=== PATIENT | female | born 1975 | race Caucasian/White ===

== ENCOUNTER 2023-02-14 08:34 | Outpatient (AMB) | payer OTHER, SELFPAY ==
--- NOTE | 2023-02-14 09:19 | AM.OFFWIN_ITS ---
Intake Vital Signs 02/14/23 09:20 Height 5 ft 3 in Weight 130 lb BMI 23.0 BP 126/74 Blood Pressure Location Rt brachial Position Sitting Pulse 72 Pulse Source Pulse Oximeter Temp 97.8 F Temp Source Oral Pulse Oximetry (%) 100 Oxygen Delivery Method Room Air Intake Visit Reasons: EP, sore throat, congestion ([phone]) Intake Note: pt is here for c.o sore throat, congestion, possible sinus infection 2x weeks Patient Tobacco Use Status: Never used Tobacco Allergies azithromycin Adverse Reaction (Mild, Verified 02/14/23 09:20) swelling eyes. Do you need a note to return to daycare/school/sports/work: Yes HPI EP, sore throat, congestion ([phone]) HPI Details This is a 47-year-old female patient who presents today for a sick visit. She reports a 2 week history of congestion, sore throat, and sinus pressure. 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 She denies any fever or chills. Denies any shortness of breath. Denies any GI symptoms. Has been taking [id number] Sudafed with some mild relief. [facility] Social History Patient Tobacco Use Status: Never used Tobacco Review of Systems Const All systems reviewed & are unremarkable except as noted in HPI and below Physical Exam Vital Signs: Last Vital Signs Temp 97.8 F 02/14/23 09:20 Pulse 72 02/14/23 09:20 BP 126/74 02/14/23 09:20 Pulse Ox 100 02/14/23 09:20 Oxygen Delivery Method Room Air 02/14/23 09:20 BMI result Body Mass Index 23.0 Const General: cooperative and no acute distress HEENT Head: Yes normal to inspection and Yes normocephalic Ears: hearing grossly normal bilaterally, external ears normal, TM normal on the right and TM abnormal (left TM ) wth effusion purulent and erythematous General nose exam: Normal external nose present and Normal nares present Face and sinus: Yes normal facial exam Mouth: Normal oral and palatal mucosa present and oropharynx normal Throat: Yes posterior oropharynx normal (mild erythema) Neck Neck: Yes no lymphadenopathy Resp Effort & Inspection: normal respiratory effort and able to speak in complete sentences Auscultation: clear to auscultation bilaterally Cardio Jugular venous distension: no JVD Palpation: normal PMI Rate: regular rate Rhythm: regular rhythm Skin General skin exam: no rashes or lesions noted Extrem General: Yes capillary refill normal and Yes no clubbing, cyanosis or edema Psych Appearance: grossly normal Mental Status: mental status grossly normal Speech and movement: Normal speech and movement present Results AMB Rapid Strep AMB Rapid Strep Negative Last Edit by Tonny Mcfadden CMA on 02/14/23 09 :33 Assessment & Plan Assessment & Plan (1) Left otitis media with effusion: Code(s): H65.92 - Unspecified nonsuppurative otitis media, left ear Plan: Augmentin for left OM. Reviewed indications, use, possible s/e. Rapid strep test was negative. Covid/Flu/RSV swab obtained. Reviewed conservative measures for ongoing URI symptomatic treatment, including increased rest, hydration, otc cold/flu products, tylenol/motrin as needed for any pain/fever. Discussed with patient that if they do not improve with time and conservative measures to return to the clinic for further evaluation. Patient verbalizes understanding and agrees to plan.? Work note provided. (2) Cough: Code(s): R05.9 - Cough, unspecified Qualifiers: Cough type: acute Qualified Code(s): R05.1 - Acute cough Plan: URI treatment as noted above. Orders: Orders AMB Rapid Strep Screen Today Z13.9 - Encounter for screening, unspecified SARS-CoV2/FLU/RSV Today R05.9 - Cough, unspecified Medications: New amoxicillin-pot clavulanate 875-125 mg 1 tab PO BID 7 days 14 tabs 0RF H65.92 - Unspecified nonsuppurative otitis media, left ear Coding Level of Care Code Est Pt Level 3 (33733) Diagnoses Left otitis media with effusion H65.92 Acute cough R05.1 Cough type: acute
[2023-02-14 09:20] VITALS: BP 126/74; PULSE 72; TEMP 36.6; O2SAT 100; BMI 23.0
== END 2023-02-14 09:46 | disposition home or self-care (01) ==
PROVIDERS: Visit Provider Nurse Practitioner Family
DX: H65.92 Unspecified nonsuppurative otitis media, left ear (principal); R05.1 Acute cough; J02.9 Acute pharyngitis, unspecified
CPT/HCPCS: 87880; 99213

== ENCOUNTER 2023-02-14 09:34 | Outpatient (REF) | payer OTHER, SELFPAY ==
[2023-02-14 13:23] LABS: Influenza A PCR NEGATIVE (Negative); Influenza B PCR NEGATIVE (Negative); Resp Syncy Virus RNA Qual PCR NEGATIVE (Negative); SARS COV2 PCR INHOUSE NEGATIVE (Negative)
== END 2023-02-14 09:35 | disposition home or self-care (01) ==
LOC: HO.LAB 09:34
PROVIDERS: Visit Provider Nurse Practitioner Family
DX: Z11.52 Encounter for screening for COVID-19 (principal); Z20.822 Contact with and (suspected) exposure to COVID-19; R05.9 Cough, unspecified
CPT/HCPCS: 0241U

== ENCOUNTER 2023-03-08 09:38 | Outpatient (AMB) | payer OTHER, SELFPAY ==
--- NOTE | 2023-03-08 11:35 | MHC.OFFWIV ---
Intake Vital Signs 03/08/23 11:42 Height 5 ft 3 in Weight 135 lb 4 oz BMI 24.0 BP 130/70 Blood Pressure Location Rt brachial Position Sitting Pulse 77 Pulse Source Pulse Oximeter Temp 97.9 F Temp Source Temporal Artery Scan Pulse Oximetry (%) 99 Intake Visit Reasons: EP, cough, head congestion ([phone]) Intake Note: Pt is here today for sinus infection started 2 wks ago Patient Tobacco Use Status: Never used Tobacco Allergies azithromycin Adverse Reaction (Mild, Verified 03/08/23 11:35) swelling eyes. Do you need a note to return to daycare/school/sports/work: Yes HPI HPI Comments History of Present Illness Details Patient is a 47yo F who presents to office with concern sinus infection She was seen 02/14/23 and diagnosed with sinusitis/ L OM and given augmentin At that time she had a purulent L OM She said she improved with antibiotics and took them completely Onset of symptoms on Saturday + congestion without runny nose + R sided sinus pressure around eye L sided ear pain No cough, CP or SOB + dizziness without syncope or HT Tried OTC medicine without relief Took an covid which was negative [facility] Social History Patient Tobacco Use Status: Never used Tobacco Review of Systems Const Denies chills, Reports fatigue, Denies fever(s), Denies frequent falls and Reports headache(s) Eyes Denies blurry vision and Denies change in vision ENT Reports dizziness, Reports otalgia, Reports facial pain, Reports headache(s), Denies hearing loss, Reports nasal congestion, Denies nasal discharge, Reports sinus pain, Reports sinus pressure and Denies sore throat Card Denies chest pain and Denies dyspnea Resp Denies chest congestion, Denies cough and Denies dyspnea Musc Denies myalgias Skin/Breast Denies rash Neuro Denies confusion, Reports dizziness, Denies frequent falls, Reports headache(s) and Denies focal weakness Psych Denies confusion Endo Reports fatigue Physical Exam Vital Signs: Last Vital Signs Temp 97.9 F 03/08/23 11:42 Pulse 77 03/08/23 11:42 BP 130/70 03/08/23 11:42 Pulse Ox 99 03/08/23 11:42 BMI result Body Mass Index 24.0 General: Non-toxic, NAD. Speaking full sentences. Skin: Warm dry throughout Eye: EOMI, PERRL HENT: Airway patent. Uvula midline. No pharyngeal erythema or edema. 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 + R sided frontal and maxillary sinus tenderness to palpation. Bilateral canals clear. TM non-erythematous, non-bulging. No TM perforation or hemotympanum noted. Appeared to be scarring of bilateral TMs Respiratory: CTA bilaterally. No wheezes, rales or rhonchi Cardiac: RRR. No murmur MSK: Full ROM extremities. Neurology: A/O x 3. CN 2-12 grossly intact. Finger to nose tracing equal bilaterally. Negative pronator drift. 5/5 art tracer strength. No aphasia or facial droop. Gait without abnormality Psych: Good mood and affect Const General: No confusion Orientation/consciousness: No confusion Neuro General: No confusion Assessment & Plan Assessment & Plan (1) Sinusitis: Code(s): J32.9 - Chronic sinusitis, unspecified Qualifiers: Chronicity: acute Recurrence: recurrent Sinusitis location: frontal Qualified Code(s): J01.11 - Acute recurrent frontal sinusitis Plan: Patient seen and evaluated. No OM or OE on exam She does have sinus tenderness but completed 1 week of Augmentin less than 1 month ago I recommended xray of sinuses for evaluation but she declined due to cough I discussed with her that her symptoms do not appear bacterial on examination No neurological deficits on examination Discussed trying nasal steroid and if not improved within 4 days she can call she should follow up with PCP If worsening headache, dizziness, vision changes etc; go to ED Patient gave verbal understanding and had no additional questions or concerns at time of discharge All questions answered Medications: New ipratropium bromide administer into each nostril 2 sprays intranasal BID-TID 1 week PRN 30 mL 0RF allergy symptoms Coding Level of Care Code Est Pt Level 3 (98544) Diagnoses Acute recurrent frontal sinusitis J01.11 Chronicity: acute Recurrence: recurrent Sinusitis location: frontal
[2023-03-08 11:42] VITALS: BP 130/70; PULSE 77; TEMP 36.6; O2SAT 99; BMI 24.0
== END 2023-03-08 13:13 | disposition home or self-care (01) ==
PROVIDERS: Visit Provider Physician Assistant
DX: J01.11 Acute recurrent frontal sinusitis (principal)
CPT/HCPCS: 99213